=== PATIENT | male | born 1970 | race Caucasian/White ===

== ENCOUNTER 2016-04-30 02:21 | Emergency (ER) | payer MEDICAID, OTHER ==
[~2016-04-30] VITALS: Ht 172.7 cm; Wt 116.5 kg
[2016-04-30 02:28] VITALS: Ht 172.7 cm; Wt 116.5 kg
[2016-04-30] MEDS ORDERED: IPRATROPIUM (NEB) 0.5 MG/2.5 ML AMP NEB STA (02:54)
[2016-04-30] MEDS ORDERED: ALBUTEROL 0.5% (NEB) 2.5 MG/0.5 ML AMP NEB STA (02:54)
[2016-04-30] MEDS ORDERED: ALPRAZOLAM 0.25 MG TAB PO ONE (03:00)
[2016-04-30] MEDS ORDERED: GUAIFENESIN/CODEINE 5ML CUP PO ONE (03:00)
[2016-04-30] MEDS ORDERED: DayQuil (03:19)
[2016-04-30] MEDS ORDERED: ACET500C5 PO (03:19)
[2016-04-30] MEDS ORDERED: PSEU120T51 PO (03:19)
[2016-04-30] MEDS ORDERED: NyQuil (03:19)
--- NOTE | 2016-04-30 03:20 | ERD ---
ER Documentation Chief Complaint Date/Time DATE: 04/30/16 TIME: 03:17 Chief Complaint Flu-like symptoms, SOB,denies CP HPI 45-year-old male presents here in emergency department for complaints of cough, runny nose nasal congestion and on and off shortness of breath and wheezing for one week. Patient has been having dry cough, does not cough up any phlegm or blood. Patient has episodes of wheezing at times. Patient denies any chest pain or palpitations. Patient has been having on and off fever. Patient took over-the -counter DayQuil, NyQuil, Sudafed and Tylenol for symptoms with mild relief. Patient does not have any sick contacts. Patient does not have any sore throat or ear pain. ROS All systems reviewed and are negative except as per history of present illness. Medications Home Meds Active Scripts Ibuprofen* (Motrin*) 600 Mg Tab, 600 MG PO Q6H Y for PAIN AND OR ELEVATED TEMP, #30 TAB Prov:SERGIO WEEKS NP 04/30/16 Prednisone* (Prednisone*) 50 Mg Tablet, 50 MG PO DAILY, #5 TAB Prov:SERGIO WEEKS NP 04/30/16 Albuterol Sulfate* (Proair HFA*) 8.5 Gm Hfa.aer.ad, 2 PUFF INH Q4H Y for WHEEZING AND SOB, #1 INHALER Prov:SERGIO WEEKS NP 04/30/16 Cetirizine Hcl* (Zyrtec*) 10 Mg Capsule, 10 MG PO DAILY, #30 TAB.CHEW Prov:SERGIO WEEKS NP 04/30/16 Guaifenesin-Codeine Phosphate* (Guaifenesin* AC Cough Syrup) 473 Ml Liquid, 10 ML PO Q4H Y for COUGH, #120 ML Prov:SERGIO WEEKS NP 04/30/16 Reported Medications [NyQuil] Unknown Strength No Conflict Check 04/30/16 [DayQuil] Unknown Strength No Conflict Check 04/30/16 Pseudoephedrine Hcl (Sudafed 12 Hour) Unknown Strength Tablet.sa, PO 04/30/16 Acetaminophen* (Tylophen*) Unknown Strength Capsule, PO Q6H Y for PAIN AND OR ELEVATED TEMP, #20 CAP 04/30/16 Allergies Allergies: Coded Allergies: No Known Allergy (Unverified , 04/30/16) PMhx/Soc History of Surgery: Yes (L Wrist Surg) Anesthesia Reaction: No Hx Neurological Disorder: No Hx Respiratory Disorders: No Hx Cardiac Disorders: No Hx Psychiatric Problems: No Hx Miscellaneous Medical Probl: No Hx Alcohol Use: Yes (Social) Hx Substance Use: No Hx Tobacco Use: No FmHx Family History: No coronary disease, No diabetes, No other Physical Exam Vitals Vital Signs Date Time Temp Pulse Resp B/P Pulse Ox O2 Delivery O2 Flow Rate FiO2 04/30/16 04:00 85 20 94 21 04/30/16 03:06 80 26 96 21 04/30/16 02:28 98.0 86 18 150/85 95 Physical Exam GENERAL: The patient is well developed and appropriate for usual state of health, in no apparent distress. HEENT: Atraumatic. Ears: Normal tympanic membrane, no erythema or bulging. No ear canal swelling. No ear discharge. Nose: Erythematous nasal turbinates with clear nasal discharge. Throat: oropharynx erythematous with postnasal drip. No tonsillar swelling or tonsillar exudates. No lymphadenopathy. CHEST: Diffuse wheezing noted bilateral lungs. There are no rales, crackles or rhonchi. HEART: Regular rate and rhythm. No murmurs, clicks, rubs or gallops. No S3 or S4. ABDOMEN: Soft, nontender and nondistended. Good bowel sounds. No rebound or guarding. No gross peritonitis. No gross organomegaly or masses. No [place] sign or McBurney point tenderness. BACK: No midline or flank tenderness. EXTREMITIES: Equal pulses bilaterally. There is no peripheral clubbing, cyanosis or edema. No focal swelling or erythema. Full range of motion. Grossly neurovascularly intact. NEURO: Alert and oriented. Cranial nerves 2-12 intact. Motor strength in all 4 extremities with 5/5 strength. Sensation grossly intact. Normal speech and gait. SKIN: There is no apparent rash or petechia. The skin is warm and dry. HEMATOLOGIC AND LYMPHATIC: There is no evidence of excessive bruising or lymphedema. No gross cervical, axillary, or inguinal lymphadenopathy. Results 24 hrs Current Medications Medications (Trade) Dose Ordered Sig/Jeff Route PRN Reason Start Time Stop Time Status Last Admin Dose Admin Albuterol (Proventil 0.5% (Neb)) 5 mg ONCE STAT NEB 04/30/16 02:54 04/30/16 02:56 DC 04/30/16 03:06 Ipratropium [place] (Atrovent 0.02% (Neb)) 0.5 mg ONCE STAT NEB 04/30/16 02:54 04/30/16 02:56 DC 04/30/16 03:06 Alprazolam (Xanax) 1 mg ONCE ONCE PO 04/30/16 03:00 04/30/16 03:01 DC 04/30/16 03:02 Guaifenesin/ Codeine Phosphate (Robitussin Ac Liquid Cup) 10 ml ONCE ONCE PO 04/30/16 03:00 04/30/16 03:01 DC 04/30/16 03:02 Methylprednisolone Sodium Succinate (Solu-Medrol) 125 mg ONCE ONCE IM 04/30/16 04:00 04/30/16 04:01 DC 04/30/16 04:01 Albuterol (Proventil 0.5% (Neb)) 10 mg ONCE STAT INH 04/30/16 03:50 04/30/16 03:53 DC 04/30/16 04:00 Breathing treatment of albuterol and Atrovent was given here in emergency department, after treatment, patient's lungs sounds are clear and patient's oxygenation is better. Patient verbalized feeling much better. Guaifenesin with codeine was given here in emergency department Xanax, patient verbalized feeling much better afterwards. EKG was done, read by me and is normal sinus rhythm at a rate of 88, normal axis , there is no ST changes or changes in the EKG that indicates any cardiac emergencies at this time. Inferior infarct age undetermined cannot rule out anterior infarct, age undetermined. Abnormal EKG Patient's EKG was also reviewed by Dr. Robles. Impression: Abnormal EKG. Procedures/MDM Medical Decision Making: Patient symptoms are most likely consistent with acute bronchitis, which viral in origin. There is low suspicion for Pneumonia at this time since patients lungs sounds are clear, patient O2 saturation is normal and patient doesnt show any respiratory distress. Patients chest xray doesnt show infiltrates or any other cardiopulmonary emergencies at this time. There is low suspicion for other cardiopulmonary emergencies at this time such as CHF, Pulmonary Embolism, Pneumothorax, Aortic Aneurysm or any other cardiopulmonary emergencies at this time. There is low suspicion for sepsis. Patient appears well and is hemodynamically stable. Fever is controlled with medicines. Disposition: Home. Condition: Stable Prescriptions: Albuterol, prednisone, guaifenesin with codeine, Zyrtec, ibuprofen Instructions: Patient is advised to take medications as prescribed. Patient is advised to rest. Patient advised to increase fluid intake, do humidifier at home and if possible, do salt water gargles. Patient is advised that if symptoms are worse, shortness of breath, uncontrolled fever, stridor, vomiting, worst signs and symptoms to return to emergency department immediately. Otherwise, patient is advised to follow up with primary doctor in 5-7 days. Departure Diagnosis: Primary Impression: Acute bronchitis Bronchitis organism: unspecified organism Qualified Code: J20.9 - Acute bronchitis, unspecified organism Patient Instructions: Bronchitis With Wheezing (Adult) Additional Instructions: Patient is advised to take medications as prescribed. Patient is advised to rest. Patient advised to increase fluid intake, do humidifier at home and if possible, do salt water gargles. Patient is advised that if symptoms are worse, shortness of breath, uncontrolled fever, stridor, vomiting, worst signs and symptoms to return to emergency department immediately. Otherwise, patient is advised to follow up with primary doctor in 5-7 days. SERGIO WEEKS NP Apr 30, 2016 03:20
--- NOTE | 2016-04-30 03:45 | RADRPT ---
PROCEDURE: Chest. CLINICAL INDICATION: Shortness of breath. TECHNIQUE: Single frontal view of the chest was obtained. COMPARISON: None. FINDINGS: The cardiac silhouette is within normal limits. The aortic arch is unremarkable. There is no focal consolidation, vascular congestion or pleural effusion. There is no pneumothorax. IMPRESSION: No evidence for active cardiopulmonary disease. .Jose Joy MD, MD Date Time Electronically viewed and signed by .Jose Joy MD, on 04/30/2016 03:44 .T/
[2016-04-30] MEDS ORDERED: ALBUTEROL 0.5% (NEB) 2.5 MG/0.5 ML AMP INH STA (03:50)
[2016-04-30] MEDS ORDERED: METHYLPREDNISOLONE 125 MG INJ IM ONE (04:00)
[2016-04-30] MEDS ORDERED: PRED50TA PO (04:55)
[2016-04-30] MEDS ORDERED: CETI10CA PO (04:55)
[2016-04-30] MEDS ORDERED: ALBU8.5H3 INH (04:55)
[2016-04-30] MEDS ORDERED: GUAI473L22 PO (04:55)
[2016-04-30] MEDS ORDERED: IBUP-1542 PO (04:55)
[2016-04-30 05:18] VITALS: BP 131/81; PULSE 97; RESP 18; TEMP 98.2
== END 2016-04-30 05:18 | disposition home or self-care (01) ==
LOC: FTE 02:21
DX: J20.9 Acute bronchitis, unspecified (principal); R06.02 Shortness of breath
CPT/HCPCS: 71010; 93005; 94644; 94664; 96372; J2930; Z7502; Z7610